=== PATIENT | female | born 1995 | race Caucasian/White ===

== ENCOUNTER 2020-07-23 09:48 | Outpatient (CLI) | payer BC ==
--- NOTE | 2020-07-23 11:23 | MMO ---
Bilateral MAMMO Bilat Diag DDI+BASSEM. CLINICAL HISTORY: Patient is 24 years old and is seen for diagnostic exam and palpable abnormality in the right breast. The patient has the following family history of breast cancer: mother, at age 58. The patient has no personal history of cancer. The patient has a history of right Cyst Aspiration in 2018 - benign - DONE IN DR MANNING'S OFFICE and right Cyst Aspiration in 2018. VIEWS: The views performed were: bilateral mediolateral oblique with tomosynthesis; bilateral craniocaudal with tomosynthesis; bilateral mediolateral with tomosynthesis; right craniocaudal spot compression magnification; right mediolateral spot compression magnification; right craniocaudal spot compression with tomosynthesis; and right mediolateral spot compression with tomosynthesis. FILMS COMPARED: The present examination has been compared to a prior imaging study performed at [facility] on 07/23/2020. This study has been interpreted with the assistance of computer-aided detection. MAMMOGRAM FINDINGS: The breasts are heterogeneously dense, which could obscure a lesion on mammography. Finding 1: There is an irregular mass measuring 20 millimeters with indistinct margins and associated fine pleomorphic calcifications seen in the anterior region of the right breast at 11 o'clock. Is palpable finding. Finding 2: There is a round mass measuring 20 millimeters with microlobulated margins seen in the right breast at 10 o'clock. solid on ultrasound Findings and recommendations were discussed with the patient prior to leaving the facility. All questions answered. In the left breast, there are no suspicious masses, calcifications or areas of architectural distortion. IMPRESSION: FINDING 1: MASS IN THE ANTERIOR REGION OF THE RIGHT BREAST AT 11 O'CLOCK IS SUSPICIOUS. AN ULTRASOUND-GUIDED BREAST BIOPSY IS RECOMMENDED. FINDING 2: MASS IN THE RIGHT BREAST AT 10 O'CLOCK IS SUSPICIOUS. AN ULTRASOUND-GUIDED BREAST BIOPSY IS RECOMMENDED. THE RESULTS OF THIS EXAM WERE SENT TO THE PATIENT. ACR BI-RADS Category 4 - Suspicious abnormality - biopsy should be considered MAMMOGRAPHY NOTE: 1. A negative mammogram report should not delay a biopsy if a dominant of clinically suspicious mass is present. 2. Approximately 10% to 15% of breast cancers are not detected by mammography. 3. Adenosis and dense breasts may obscure an underlying neoplasm. Reported by: BRAYAN DUTOTN MD Electonically Signed: [id number]
--- NOTE | 2020-07-23 11:39 | ULT ---
Exam: Right breast ultrasound Limited: HISTORY: Patient presents with a palpable finding at approximately 11:00. In the 11:00 position 4 cm from the nipple there is a very irregular heterogeneous mostly hypoechoic solid mass very poorly marginated contain microcalcifications which were worrisome on prior diagnostic mammogram. In addition to this palpable mass there is a second mass at 10:00 position 7 cm from the nipple which is round and somewhat more circumscribed measuring 1.8 cm in size but is solid. In addition to the 2 masses in the breast, the right axilla is evaluated with at least 2 lymph nodes demonstrated the largest one measures 1.7 x 2.1 cm in size and certainly is suspicious for lymphadenopathy. Biopsy of both right breast masses with ultrasound as well as the enlarged right axillary lymph node is recommended. BI-RADS Category 4 suspicious finding. Follow-up ultrasound-guided right breast biopsy is recommended . Findings were discussed with the patient as well as with Dr. Hamilton at the time of this study. The patient is scheduled for ultrasound-guided biopsy this afternoon at 1:00 PM.
--- NOTE | 2020-07-23 14:09 | MMO ---
FILMS COMPARED: The present examination has been compared to a prior imaging study performed at [facility] on 07/23/2020. MAMMOGRAM FINDINGS: The breast is heterogeneously dense, which could obscure a lesion on mammography. there are 2 biopsy clips in the right upper outer breast corresponding to masses. IMPRESSION: FINDING IN THE RIGHT BREAST IS CONFIRMED UTILIZING POST PROCEDURE MAMMOGRAM. Reported by: TIFFANI PRICE MD Electonically Signed: [id number]
--- NOTE | 2020-07-23 15:26 | ULT ---
EXAM: Ultrasound-guided biopsy of 2 separate right breast masses at the 10:00 and 11:[address] Ultrasound-guided biopsy marker clip placements at sites of biopsy right breast at the 10:00 and 11:0 0 positions Ultrasound-guided fine-needle aspiration of on enlarged right axillary lymph node PROVIDED CLINICAL HISTORY: Patient's mother with breast cancer diagnosed at the age of 58 years. Patient currently has 2 separat e right breast masses at 10:00 and 11:00 with enlarged right axillary lymph nodes. COMPARISON: Right breast ultrasound on 07/23/2020 TECHNIQUE: The procedure including the risks and complications were explained to the patient, and informed conse nt was obtained. The masses in the right breast at 10:00 and 11:00 positions were localized. The enlarged right axillary lymph node was also localized. These areas were meticulously prepped and drap ed in usual sterile fashion. The skin and subcutaneous tissues at the level of the masses in the right breast were infiltrated wit h buffered 1% lidocaine for local anesthesia. A small skin incision was made. Utilizing concurrent real-time ultrasound guidance, a total of 3 core needle biopsy specimens were obtained utilizing a 14 -gauge biopsy needle of the mass at the 10:00 position. A biopsy marker clip was then deployed at site of the mass at the 10:00 position. Skin and subcutaneous soft tissues adjacent to the mass at the 11:00 position right breast were infil trated with buffered 1% lidocaine for local anesthesia. Utilizing the same skin incision, a total of 4 core needle biopsy specimens were obtained utilizing the 14-gauge biopsy needle. Biopsy marker c lip was then deployed at site of biopsy adjacent to the right breast mass at 11:00 position. The largest lymph node in the right axilla was localized, and the skin and subcutaneous tissues were infiltrated with buffered 1% lidocaine for local anesthesia. Utilizing concurrent real-time ultrasound guidance and a Franseen needle, 2 separate fine-needle aspiration specimens of the enlarge d lymph node were performed. Hemostasis was achieved with direct pressure. Dry sterile dressings were placed at sites of biopsy an d fine-needle aspiration. The patient tolerated the procedure well and without immediate complication. Patient was transported to mammography to obtain post biopsy mammogram which demonstrated biopsy marker clips adjacent to masses in the right breast on mammographic evaluation which corresponds to ultrasound findings. IMPRESSION: 1. Technically successful ultrasound-guided biopsy of mass 10:00 position right breast, and successfu l placement of biopsy marker clip in this region. 2. Technically successful ultrasound-guided biopsy of mass 11:00 position right breast, and successfu l placement of biopsy marker clip in this region. 3. Technically successful ultrasound-guided fine-needle aspiration of enlarged right axillary lymph n ode. 4. Pathology results are pending.
== END 2020-07-23 09:49 | disposition home or self-care (01) ==
LOC: BICMAMMO 09:48
PROVIDERS: ATTEND Specialist
DX: N63.11 Unspecified lump in the right breast, upper outer quadrant (principal)
CPT/HCPCS: 19285; 19286; 38505; 77066; 88305; G0279

== ENCOUNTER 2020-08-02 06:39 | Outpatient (CLI) | payer BC ==
[2020-08-02 12:20] LABS: #Eosinphils 0.1 10x3/uL (0.0-0.5); #Monocytes 0.3 10x3/uL (0.0-1.1); #Neutrophils 3.7 10x3/uL (1.5-8.4); %Basophils 0.5 % (0.0-2.0); %Lymphocytes 36.2 % (18.0-47.0); %Monocytes 5.2 % (0.0-10.0); %Neutrophils 55.9 % (40.0-75.0); Hemoglobin 13.7 g/dL (12.0-16.0); Mean Corpuscular HGB CONC 32.1 G/DL (32.0-36.0); Mean Corpuscular Hemoglobin 27.5 PG (27.0-33.0); Mean Corpuscular Volume 85.6 fl (80.0-100.0); Mean Platelet Volume 10.9 fl (7.4-10.4); Platelet Count 319 10x3/uL (130-400); RBC Distribution Width 12.9 % (11.5-14.5); Red Blood Cell (RBC) Count 4.99 10x6/uL (3.90-5.20); White Blood Cell (WBC) Count 6.6 10x3/uL (4.5-11.0)
[2020-08-02 12:46] LABS: ALT (SGPT) 39 U/L (8-55); AST (SGOT) 21 U/L (5-34); Albumin 4.4 g/dL (3.5-5.0); Alkaline Phosphatase 69 U/L (40-110); Anion Gap 16 mmol/L (10-20); BUN (Urea Nitrogen) 13 mg/dL (7.0-18.7); Bilirubin, Total 0.4 mg/dL (0.2-1.2); Calc. Creatinine Clearance 0 mL/min (70-130); Calcium 9.5 mg/dL (7.8-10.44); Carbon Dioxide 26 mmol/L (22-29); Chloride 105 mmol/L (98-107); Globulin 3.3 g/dL (2.4-3.5); Glucose 99 mg/dL (70-105); Potassium 4.5 mmol/L (3.5-5.1); Protein, Total 7.7 g/dL (6.0-8.3); Sodium 142 mmol/L (136-145)
[2020-08-02 14:21] LABS: BHCG - Serum Negative (NEGATIVE); Pregs Control Background? CLEAR/WHITE (CLR/WHITE); Pregs Control Bar Appear? YES (CONTROL BAR)
[2020-08-02 19:02] LABS: SARS-CoV-2 MS2 Positive; SARS-CoV-2 N Gene Negative; SARS-CoV-2 S Gene Negative; SARS-CoV-2 by NAA Not Detected (NotDetected); SARS-CoV-2 orf1ab Negative
== END 2020-08-02 06:40 | disposition home or self-care (01) ==
LOC: LABBT 06:39
PROVIDERS: ATTEND Specialist
DX: Z01.812 Encounter for preprocedural laboratory examination (principal); C77.3 Secondary and unspecified malignant neoplasm of axilla and upper limb lymph nodes; C50.411 Malignant neoplasm of upper-outer quadrant of right female breast
CPT/HCPCS: 80053; 84703; 85025; 87635; U0003

== ENCOUNTER 2020-08-07 11:35 | Day surgery (SDC) | payer BC ==
[2020-08-06 11:09] VITALS: BMI 39.4
[~2020-08-07 11:35] MED LIST: Dexamethasone 20 MG/5 ML VIAL ONE; Esmolol 100 MG/10 ML VIAL ONE; Glycopyrrolate 0.2 MG/ML 5 ML SYRINGE ONE; Lidocaine 1% PF 5 ML VIAL ONE; Ondansetron PF 4 MG/2 ML Vial ONE; PROPOFOL 200 MG/20 ML VIAL ONE
[2020-08-07] MEDS ORDERED: Acetaminophen 500 MG TAB ONE (13:46)
[2020-08-07] MEDS ORDERED: Ketorolac Tromethamine 30 MG/ML VIAL ONE (13:46)
[2020-08-07] MEDS ORDERED: Midazolam HCl 2 mg/2 ml Vial ONE ×2 (14:42→15:17)
[2020-08-07] MEDS ORDERED: Lidocaine 2% PF 5 ML VIAL ONE (15:14)
[2020-08-07] MEDS ORDERED: Bupivacaine PF 0.5% 30 ML VIAL ONE (15:14)
[2020-08-07] MEDS ORDERED: Fentanyl 100 MCG/2 ML VIAL ONE (15:17)
[2020-08-07] MEDS ORDERED: Propofol 500 MG/50 ML VIAL ONE (15:17)
--- NOTE | 2020-08-07 16:46 | RAD ---
Portable frontal chest radiograph: 08/07/2020 COMPARISON: None HISTORY: Evaluate chest following placement of a Port-A-Cath FINDINGS: There is a left subclavian Port-A-Cath with distal tip overlying the cavoatrial junction. T here is no pneumothorax, pleural fluid, focal consolidation, or alveolar edema. Mild increased linear density noted in the lung bases, left greater than right, likely on the basis of volume loss. IMPRESSION: Left subclavian Port-A-Cath with no evidence for pneumothorax.
--- NOTE | 2020-08-07 19:51 | OP ---
DATE OF PROCEDURE: 08/07/2020 PREOPERATIVE DIAGNOSIS: Right breast cancer in need of antineoplastic chemotherapy access port. POSTOPERATIVE DIAGNOSIS: Right breast cancer in need of antineoplastic chemotherapy access port. PROCEDURE PERFORMED: Left subclavian vein MediPort, PowerPort. ANESTHESIA: Intravenous sedation, local 0.5% Marcaine 30 mL mixed with 1% Xylocaine with epinephrine 20 mL. Fluoroscopy used during the procedure. DESCRIPTION OF PROCEDURE: The patient was taken to the operating room, where under intravenous sedation, neck and chest prepared with ChloraPrep and draped in routine fashion. Local anesthetic was infiltrated in the skin and subcutaneous tissue about the operative site. Infraclavicular approach used to cannulate the left subclavian vein, obtaining good return of venous blood, J-wire threaded, trocar catheter removed. Skin site enlarged sharply creating a subcutaneous reservoir using cautery for hemostasis. Once the pocket was created, the dilator and Peel-Away sheath placed with J-wire in the subclavian vein and dilator and J-wire removed. Catheter placed with Peel-Away sheath. Peel-Away sheath was removed. Fluoroscopy used to place the tip in optimal position in superior vena cava, catheter tailored to length connected to the MediPort which was secured to the subcutaneous tissues with 3-0 Prolene x2 and the subcutaneous tissue was approximated with 3-0 Monocryl, skin with subdermal 4-0 Monocryl and final fluoroscopic images revealed good catheter and port placement. The port was accessed with a Lee needle, aspirated blood, and flushed with heparinized saline solution and sterile dressing applied. The patient tolerated the procedure well. Job ID: [id number]
== END 2020-08-07 17:35 | disposition home or self-care (01) ==
LOC: SDC 11:35
PROVIDERS: ATTEND Specialist
PROC: 02HV33Z Insertion of Infusion Device into Superior Vena Cava, Percutaneous Approach (ICD-10-PCS; principal; 2020-08-07)
DX: C50.411 Malignant neoplasm of upper-outer quadrant of right female breast (principal); C77.3 Secondary and unspecified malignant neoplasm of axilla and upper limb lymph nodes; Z80.3 Family history of malignant neoplasm of breast
CPT/HCPCS: 71045; C1788; J0690; J1100; J1642; J1885; J2001; J2250; J2405; J2704; J3010; S0020

== ENCOUNTER 2020-08-17 15:40 | Emergency (ER) | payer BC ==
[2020-08-17] MEDS ORDERED: Ondansetron PF 4 MG/2 ML Vial ONE (16:08)
[2020-08-17] MEDS ORDERED: Morphine 4 MG/ML VIAL ONE (16:17)
[2020-08-17 16:59] LABS: Hemoglobin 15.7 g/dL (12.0-16.0); Mean Corpuscular HGB CONC 32.5 g/dL (32.0-36.0); Mean Corpuscular Hemoglobin 27.8 pg (27.0-31.0); Mean Corpuscular Volume 85.7 fL (78.0-98.0); Mean Platelet Volume 8.2 fL (7.4-10.4); Platelet Count 258 thou/uL (130-400); RBC Distribution Width 12.5 % (11.5-14.5); Red Blood Cell (RBC) Count 5.66 mill/uL (4.20-5.40); White Blood Cell (WBC) Count 57.5 thou/uL (4.8-10.8)
[2020-08-17 17:14] LABS: ALT (SGPT) 71 U/L (8-55); AST (SGOT) 38 U/L (5-34); Albumin 4.4 g/dL (3.5-5.0); Alkaline Phosphatase 250 U/L (40-110); Anion Gap 13 mmol/L (10-20); BUN (Urea Nitrogen) 12 mg/dL (7.0-18.7); Bilirubin, Total 0.4 mg/dL (0.2-1.2); Calc. Creatinine Clearance 0 mL/min (70-130); Calcium 9.3 mg/dL (7.8-10.44); Carbon Dioxide 31 mmol/L (22-29); Chloride 96 mmol/L (98-107); Globulin 3.7 g/dL (2.4-3.5); Glucose 87 mg/dL (70-105); Lipase 32 U/L (8-78); Protein, Total 8.1 g/dL (6.0-8.3); Sodium 136 mmol/L (136-145)
[2020-08-17 17:21] LABS: Band 48 % (5-11); Lymphocytes 4 % (21-51); MDiff Complete? YES; Metamyelocyte 5 % (0-0); Monocytes 10 % (0-10); Myelocyte 5 % (0-0); Neutrophil 25 % (42-75); Nucleated RBC 1 % (0); Platelet Morphology Comment Appears Adequate; Polychromasia MODERATE = 3-4 cells (100X) (0-2/hpf); Reactive Lymphocytes 3 % (0-10); Reflex for Review?? YES
[2020-08-17] MEDS ORDERED: Piperacillin/Tazobactam 3.375 GM VIAL ONE ×2 (18:11→18:15)
[2020-08-17] MEDS ORDERED: Promethazine HCl 25 MG/ML VIAL ONE (18:53)
[2020-08-17 19:52] LABS: Pregnancy Test - Urine (BHCG) Negative (Negative); Pregu Control Background? CLEAR/WHITE (CLR/WHITE); Pregu Control Bar Appear? YES (CONTROL BAR)
[2020-08-17 19:53] LABS: Bacteria/HPF None Seen HPF (None Seen); Bilirubin Negative (Negative); Blood, Urine 2+ (Negative); Clarity Clear (Clear); Glucose, Urine (Dipstick) Normal (Negative); Ketone, Urine Negative (Negative); Leukocyte Negative Leu/uL (Negative); Nitrite Negative (Negative); Protein, Urine (Dipstick) Negative (Neg-Trace); RBC/HPF 0-3 HPF (0-3); Squamous Epithelial 0-3 HPF (0-3); Urobilinogen Normal mg/dL (Less than 2); pH, Urine 5.5 (5.0-9.0)
--- NOTE | 2020-08-17 20:16 | CT ---
CT ABDOMEN AND PELVIS WITH IV CONTRAST 08/17/2020 CLINICAL INFORMATION: Abdominal pain with nausea and vomiting. History of breast cancer. COMPARISON: 08/03/2020 Technique: Multiple contiguous axial CT images are obtained through the abdomen and pelvis with IV contrast. Cor onal reformatted images are provided. FINDINGS: Lower Chest: Very tiny subpleural nodular density previously measured 4 mm is again seen but less per ceptible on today's examination which could be related to slice selection. No additional pulmonary nodule is seen at either lung base, and there is no pleural effusion. Vessels: Abdominal aorta is normal in caliber. Abdomen: Portal vein:Patent Gallbladder: Surgically absent. Liver: Hepatic steatosis is again seen. No focal hepatic lesion is identified. Spleen: within normal limits. Pancreas: within normal limits. Adrenals: within normal limits. Kidneys: within normal limits. Bowel: Normal caliber. Appendix: The appendix is visualized and normal in caliber. Peritoneum: No ascites or free air; no fluid collection. Mesentery and Retroperitoneum: No enlarged lymph nodes are seen by CT size criteria. Abdominal Wall: Very tiny fat-containing umbilical hernia. Pelvis: Reproductive Organs: No pelvic masses. Gas is seen within the vaginal vault likely due to female hygi evelyn products. Bladder: Incompletely distended but has a normal appearance Bones: No suspicious lytic or sclerotic osseous lesions. IMPRESSION: 1P No acute findings are seen in the abdomen or pelvis. CT abdomen and pelvis are stable compared to prior exam. 2. Hepatic steatosis. 3. Postcholecystectomy changes. 4. Very tiny subpleural nodular density left lung base which is less perceptible compared to prior [facility].
[2020-08-17] MEDS ORDERED: Vancomycin 1 GM/200 ML BAG ONE (20:38)
--- NOTE | 2020-08-17 21:10 | PDOC.FPRHP ---
- History of Present Illness History of Present Illness: Patient is a 24 yo Patient had first chemo treatment last . She has been unable to eat since Thursday. She has also been experiencing N/V during this time. She is vomiting at least twice a day and often more. Denies blood in the vomit. She is able to tolerate some water and small bites of pudding or bananas, but that eventually comes up. On Thursday, she started having nosebleeds. She has had 8 since then. One of the nosebleeds lasted 20 minutes, but the others have lasted less than 10 minutes and relieved with compression. Denies fever, but endorses chills. Denies IVERSON, cough, SOB, CP. - Allergies/Adverse Reactions Allergies Allergy/AdvReac Type Severity Reaction Status Date / Time No Known Allergies Allergy Verified 08/06/20 11:07 - Home Medications Medication Instructions Recorded Confirmed Type No Known 08/06/20 08/06/20 History - History PMHx: PSHx: FHx: Social: - Vital signs BP: [] HR: [] RR: [] Tmax: [] Pox: []% on [] Wt: [] FMR H&P: Results - Labs Result Diagrams: 08/17/20 16:34 08/17/20 16:34 Lab results: WBC 57.5 thou/uL (4.8-10.8) H* 08/17/20 16:34 Hgb 15.7 g/dL (12.0-16.0) 08/17/20 16:34 Hct 48.5 % (36.0-47.0) H 08/17/20 16:34 MCV 85.7 fL (78.0-98.0) 08/17/20 16:34 Plt Count 258 thou/uL (130-400) 08/17/20 16:34 Band Neuts % (Manual) 48 % (5-11) H 08/17/20 16:34 Sodium 136 mmol/L (136-145) 08/17/20 16:34 Potassium 4.0 mmol/L (3.5-5.1) 08/17/20 16:34 Chloride 96 mmol/L (98-107) L 08/17/20 16:34 Carbon Dioxide 31 mmol/L (22-29) H 08/17/20 16:34 BUN 12 mg/dL (7.0-18.7) 08/17/20 16:34 Creatinine 1.11 mg/dL (0.6-1.1) H 08/17/20 16:34 Glucose 87 mg/dL (70-105) 08/17/20 16:34 Lactic Acid 1.8 mmol/L (0.5-2.2) 08/17/20 18:36 Calcium 9.3 mg/dL (7.8-10.44) 08/17/20 16:34 Total Bilirubin 0.4 mg/dL (0.2-1.2) 08/17/20 16:34 AST 38 U/L (5-34) H 08/17/20 16:34 ALT 71 U/L (8-55) H 08/17/20 16:34 Alkaline Phosphatase 250 U/L (40-110) H 08/17/20 16:34 Serum Total Protein 8.1 g/dL (6.0-8.3) 08/17/20 16:34 Albumin 4.4 g/dL (3.5-5.0) 08/17/20 16:34 Lipase 32 U/L (8-78) 08/17/20 16:34 Urine Ketones Negative mg/dL (Negative) 08/17/20 18:40 Urine Blood 2+ (Negative) A 08/17/20 18:40 Urine Nitrite Negative (Negative) 08/17/20 18:40 Ur Leukocyte Esterase Negative Reena/uL (Negative) 08/17/20 18:40 Urine RBC 0-3 HPF (0-3) 08/17/20 18:40 Urine WBC 4-6 HPF (0-3) A 08/17/20 18:40 Ur Squamous Epith Cells 0-3 HPF (0-3) 08/17/20 18:40 Urine Bacteria None Seen HPF (None Seen) 08/17/20 18:40 FMR H&P: Upper Level - Plan Date/Time: 08/17/202105 I, [], have evaluated this patient and agree with findings/plan as outlined by purchasing internship resident. Pertinent changes/additions are listed here.
[2020-08-17] MEDS ORDERED: Ciprofloxacin 500 MG TAB ONE (23:23)
== END 2020-08-18 03:03 | disposition short-term general hospital (02) ==
LOC: ERS 15:40
DX: E86.0 Dehydration (principal); A41.9 Sepsis, unspecified organism; E86.1 Hypovolemia
CPT/HCPCS: 36415; 74177; 80053; 81003; 81015; 81025; 83605; 83690; 85025; 85060; 87040; 87086; 96365; 96366; 96367; 96375; J2270; J2405; J2543; J2550; J3370

== ENCOUNTER 2020-09-04 13:40 | Inpatient (IN) | payer BC ==
[~2020-09-04 13:40] MED LIST changes: -Dexamethasone 20 MG/5 ML VIAL ONE; -Esmolol 100 MG/10 ML VIAL ONE; -Glycopyrrolate 0.2 MG/ML 5 ML SYRINGE ONE; +Iopamidol-370 76% 500 ML 1 ML ONE; -Lidocaine 1% PF 5 ML VIAL ONE; -Ondansetron PF 4 MG/2 ML Vial ONE; -PROPOFOL 200 MG/20 ML VIAL ONE
[2020-09-04] MEDS ORDERED: Ondansetron PF 4 MG/2 ML Vial ONE ×2 (14:23→16:56)
[2020-09-04] MEDS ORDERED: Cefepime 2 GM VIAL ONE (14:23)
[2020-09-04] MEDS ORDERED: Morphine 4 MG/ML VIAL ONE ×2 (14:23→16:56)
--- NOTE | 2020-09-04 14:25 | RAD ---
EXAM: CHEST ONE VIEW HISTORY: Covid positive. Patient diagnosed with colitis. Patient claims of abdominal pain and nausea and vomit ing. COMPARISON: 08/07/2020 FINDINGS: Left-sided Mediport catheter remains place. Cardiac silhouette is within normal limits. There has bee n interval interval development of increased interstitial and alveolar opacities seen within the majority the right lung as well as in the region of the left lung base. Findings may be related to an atypical infectious process and possibly secondary to viral pneumonitis such as Covid 19. No other interval change. IMPRESSION: Findings suspicious for Covid pneumonia.
[2020-09-04 14:35] LABS: Hemoglobin 12.2 g/dL (12.0-16.0); Mean Corpuscular HGB CONC 31.7 g/dL (32.0-36.0); Mean Corpuscular Hemoglobin 26.8 pg (27.0-31.0); Mean Corpuscular Volume 84.5 fL (78.0-98.0); Mean Platelet Volume 9.2 fL (7.4-10.4); Platelet Count 196 thou/uL (130-400); RBC Distribution Width 13.9 % (11.5-14.5); Red Blood Cell (RBC) Count 4.56 mill/uL (4.20-5.40); White Blood Cell (WBC) Count 23.7 thou/uL (4.8-10.8)
[2020-09-04 14:48] LABS: ALT (SGPT) 32 U/L (8-55); AST (SGOT) 40 U/L (5-34); Albumin 2.7 g/dL (3.5-5.0); Alkaline Phosphatase 64 U/L (40-110); Anion Gap 14 mmol/L (10-20); BUN (Urea Nitrogen) 17 mg/dL (7.0-18.7); Band 48 % (5-11); Bilirubin, Total 0.6 mg/dL (0.2-1.2); CK (CPK) 65 U/L (29-168); Calc. Creatinine Clearance 0 mL/min (70-130); Calcium 7.2 mg/dL (7.8-10.44); Carbon Dioxide 26 mmol/L (22-29); Chloride 98 mmol/L (98-107); Globulin 2.9 g/dL (2.4-3.5); Glucose 104 mg/dL (70-105); Lipase 12 U/L (8-78); Lymphocytes 3 % (21-51); MDiff Complete? YES; Monocytes 2 % (0-10); Neutrophil 46 % (42-75); Platelet Morphology Comment Appears Adequate; Potassium 3.8 mmol/L (3.5-5.1); Protein, Total 5.6 g/dL (6.0-8.3); RBC Morphology Normal; Reactive Lymphocytes 1 % (0-10); Sodium 134 mmol/L (136-145)
[2020-09-04 14:56] LABS: BHCG - Serum Negative (NEGATIVE); Pregs Control Background? CLEAR/WHITE (CLR/WHITE); Pregs Control Bar Appear? YES (CONTROL BAR)
--- NOTE | 2020-09-04 16:34 | CT ---
EXAM: CT Abdomen Pelvis W Con PROVIDED CLINICAL HISTORY: Abdominal pain COMPARISON: 08/17/2020 FINDINGS: There are multifocal patchy groundglass opacities with associated interstitial thickening involving b oth lung bases. There is partially visualized right pleural fluid. There is diffuse fatty infiltration of the liver. The spleen, pancreas, kidneys and adrenal glands ap pear unremarkable. Changes of prior cholecystectomy are seen. There is conspicuous diffuse colonic and rectal wall thickening with associated mucosal enhancement a nd pericolonic noncircumscribed fluid density. There is no evidence for free intraperitoneal air. There is mild free intraperitoneal fluid. The appendix does not appear dilated. The regional major vascular structures appear unremarkable. Contrast material seen within the urinary bladder, presumably on the basis of recent IV contrast administration. The osseous structures demonstrate no concerning lytic or blastic lesions. IMPRESSION: 1. Severe pancolitis. 2. Small right pleural fluid and mild free intraperitoneal fluid. 3. Pulmonary parenchymal findings typical for Covid pneumonia.
[2020-09-04] MEDS ORDERED: metroNIDAZOLE 500 MG/100 ML BAG ONE (16:57)
[2020-09-04 17:22] LABS: Lactic Acid 2.5 mmol/L (0.5-2.2)
[2020-09-04] MEDS ORDERED: Acetaminophen 650 MG Suppository PR PRN (18:09)
[2020-09-04] MEDS ORDERED: Albuterol Sulfate 2.5 mg/3 ml Neb NEB PRN (18:15)
[2020-09-04] MEDS ORDERED: Dexamethasone 4 mg/ml Vial SLOW IVP SCH (18:15)
[2020-09-04] MEDS ORDERED: Ondansetron PF 4 MG/2 ML Vial IVP PRN (18:17)
--- NOTE | 2020-09-04 18:47 | PDOC.HHP ---
Hospitalist HPI - History of Present Illness History of Present Illness: ADMISSION DATE: 09/04/2020 TIME OF ASSESSMENT: 1700 CHIEF COMPLAINT: Multiple complaints HPI: This is a 24-year-old woman who presents emergency department today with complaints of shortness of breath who has had persistent issues with nausea, vo miting and diarrhea for the last 4 to 6 weeks. She has had frequent visits to the emergency department at [facility] and states she has been sent home. Her last visit to the ER was yesterday evening when she underwent CT imaging that demonstrated she had colitis. She has been taking Zofran at home without any improvement in nausea vomiting. Reports having tried as needed Phenergan but had a bad reaction to it. States that she felt like she was going to pass out. She has gotten to the point where she has only been dry heaving and typically dry heaving does not settle until she has a bowel movement. All her stools have been watery and today alone she has had 8 loose stools. Reports having blood in the stools on one occasion a few days ago. States she has not held down any solid food for several weeks and does not recall her last meal. She has a known history of breast cancer for which she sees Dr. Beckman. Her last chemotherapy treatment was on August 09, 2020 and she has been receiving treatment with carboplatin, docetaxel and Herceptin. She was due for another treatment on August 29 however she was tested for Covid on 08/26/2020 after developing a fever which came back positive. For that reason her treatments were postponed. She reports feeling short of breath with exertion and states that has worsened in the last 2 to 3 days. She complains of a cough that is dry and has not noted any hemoptysis. Denies having any chest pain. She complains of generalized malaise and weakness and states she spent most of her time in bed for the last several weeks due to her general fatigue as well as with shortness of breath on minimal exertion. ED COURSE: When initially seen in the emergency department the patient was on 15 L via nonrebreather and satting at 98% in triage. He has been tachycardic in the 130s since arrival. EKG was done showing sinus tachycardia with no ST changes or T wave abnormalities. She had a heart rate of 133. In the ER she had a chest x-ray done that showed findings suspicious for Covid pneumonia. CT of the abdomen and pelvis was done as well demonstrating severe pancolitis. She was noted to have a small right pleural fluid and mild free intraperitoneal fluid. Pulmonary parenchymal findings typical for Covid pneumonia. She was started on IV antibiotics with cefepime and Flagyl. She has been given 2 L of normal saline. For her severe abdominal pain she has gotten morphine 4 mg x 2. For her nausea she has gotten Zofran 4 mg x 2. PAST MEDICAL HISTORY: 1. 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 History of depression PAST SURGICAL HISTORY: 1. Cholecystectomy 2. Laparoscopic surgery SOCIAL HISTORY: Patient lives at home with her and child. Denies any tobacco use alcohol consumption or drug use. She is fully independent at baseline. FAMILY HISTORY: Family history of breast cancer ALLERGIES: Haldol and vancomycin CURRENT MEDICATIONS: 1. Zofran 8 mg p.o. every 8 hours as needed for nausea vomiting 2. Levaquin 500 mg p.o. daily 3. Carboplatin 4. Docetaxel 5. Neulasta 6. Trastuzumab 7. Perjeta - Exam General Appearance: NAD, ill appearing (appears generally unwell and fatigued) General - other findings: VS: Temp 99.5, HR 133, RR 24, BP 119/83, O2 sat 99% on 3 L by nasal cannula Eye: PERRL, anicteric sclera ENT: normocephalic atraumatic, dry oral mucosa Neck: supple, no lymphadenopathy Heart: RRR, normal peripheral pulses Respiratory: CTAB, no wheezes, no rales, no ronchi, normal chest expansion Gastrointestinal: soft (mild discomfort in the mid abdomen with palpation), non- distended, normal bowel sounds, no guarding, no rigidity Extremities: no edema Skin: normal turgor, no lesions, no rashes Neurological: cranial nerve grossly intact, normal sensation to touch, no weakness Musculoskeletal: normal tone, normal strength, no muscle wasting Psychiatric: normal affect, normal behavior, A&O x 3, oriented to person Hospitalist Results - Labs Result Diagrams: 09/04/20 14:09 09/04/20 14:09 Lab results: WBC 23.7 thou/uL (4.8-10.8) H 09/04/20 14:09 Hgb 12.2 g/dL (12.0-16.0) 09/04/20 14:09 Hct 38.6 % (36.0-47.0) 09/04/20 14:09 MCV 84.5 fL (78.0-98.0) 09/04/20 14:09 Plt Count 196 thou/uL (130-400) 09/04/20 14:09 Band Neuts % (Manual) 48 % (5-11) H 09/04/20 14:09 Sodium 134 mmol/L (136-145) L 09/04/20 14:09 Potassium 3.8 mmol/L (3.5-5.1) 09/04/20 14:09 Chloride 98 mmol/L (98-107) 09/04/20 14:09 Carbon Dioxide 26 mmol/L (22-29) 09/04/20 14:09 BUN 17 mg/dL (7.0-18.7) 09/04/20 14:09 Creatinine 0.93 mg/dL (0.6-1.1) 09/04/20 14:09 Glucose 104 mg/dL (70-105) 09/04/20 14:09 Lactic Acid 2.5 mmol/L (0.5-2.2) H 09/04/20 16:53 Calcium 7.2 mg/dL (7.8-10.44) L 09/04/20 14:09 Total Bilirubin 0.6 mg/dL (0.2-1.2) 09/04/20 14:09 AST 40 U/L (5-34) H 09/04/20 14:09 ALT 32 U/L (8-55) 09/04/20 14:09 Alkaline Phosphatase 64 U/L (40-110) 09/04/20 14:09 Creatine Kinase 65 U/L (29-168) 09/04/20 14:09 Serum Total Protein 5.6 g/dL (6.0-8.3) L 09/04/20 14:09 Albumin 2.7 g/dL (3.5-5.0) L 09/04/20 14:09 Lipase 12 U/L (8-78) 09/04/20 14:09 - Radiology Interpretation CT scan - abdomen Status: report reviewed by sc Hospitalist H&P A/P - Problem (1) Pneumonia due to COVID-19 virus Code(s): U07.1 - COVID-19; J12.82 - PNEUMONIA DUE TO CORONAVIRUS DISEASE 2019 Status: Acute (2) Pancolitis Code(s): K51.00 - ULCERATIVE (CHRONIC) PANCOLITIS WITHOUT COMPLICATIONS Status: Acute (3) Tachycardia Code(s): R00.0 - TACHYCARDIA, UNSPECIFIED Status: Acute (4) Intractable nausea and vomiting Code(s): R11.2 - NAUSEA WITH VOMITING, UNSPECIFIED Status: Acute (5) Diarrhea Code(s): R19.7 - DIARRHEA, UNSPECIFIED Status: Acute (6) Breast cancer Status: Chronic - Plan Plan: Cardiac and O2 sat monitoring Will check d-dimer in light of COVID, malignancy and sedentary for weeks to rule out PE Continue IV hydration Consult GI Continue IV antibiotics Zofran PRN for n/v. Clear liquid diet, advance as tolerated Albuterol, dex, vitamin c and zinc Pharmacy to screen for Remdesivir Stool studies If negative for c. diff, will start Imodium GI prophylaxis with Famotidine CODE STATS FULL Continue isolation status Case discussed with Dr. Meléndez who agrees with plan as above
[2020-09-04] MEDS ORDERED: Albuterol 200 PUFF (6.7GM INHALER) INH PRN (18:55)
[2020-09-04 21:09] VITALS: BMI 36.8
[2020-09-04] MEDS: Sodium Chloride 0.9% 1,000 ML IV SCH (21:28)
[2020-09-04] MEDS: metroNIDAZOLE 500 MG in Premix Bag 1 BAG IVPB SCH (23:22)
[2020-09-04] MEDS: Famotidine 20 MG TAB PO SCH (23:22)
[2020-09-04] MEDS: Ondansetron ODT 4 MG TAB PO PRN (23:22)
[2020-09-05] MEDS: HYDROcodone/Acetaminophen 7.5/325 mg Tablet PO PRN ×4 (00:52→21:21)
[2020-09-05] MEDS ORDERED: Cefepime 2 GM in Sodium Chloride 0.9% 100 ML IVPB SCH (04:00)
[2020-09-05 05:23] LABS: ALT (SGPT) 27 U/L (8-55); AST (SGOT) 38 U/L (5-34); Albumin 2.5 g/dL (3.5-5.0); Alkaline Phosphatase 59 U/L (40-110); Anion Gap 12 mmol/L (10-20); BUN (Urea Nitrogen) 14 mg/dL (7.0-18.7); Bilirubin, Total 0.5 mg/dL (0.2-1.2); Calc. Creatinine Clearance 170 mL/min (70-130); Carbon Dioxide 23 mmol/L (22-29); Chloride 103 mmol/L (98-107); Globulin 2.8 g/dL (2.4-3.5); Glucose 135 mg/dL (70-105); Potassium 3.8 mmol/L (3.5-5.1); Protein, Total 5.3 g/dL (6.0-8.3); Sodium 134 mmol/L (136-145)
[2020-09-05] MEDS: Sodium Chloride 0.9% 1,000 ML IV SCH ×2 (05:32→13:18)
[2020-09-05] MEDS: metroNIDAZOLE 500 MG in Premix Bag 1 BAG IVPB SCH ×4 (05:32→23:33)
[2020-09-05 06:44] LABS: Hemoglobin 10.4 g/dL (12.0-16.0); Mean Corpuscular HGB CONC 31.9 g/dL (32.0-36.0); Mean Corpuscular Hemoglobin 26.9 pg (27.0-31.0); Mean Corpuscular Volume 84.3 fL (78.0-98.0); Mean Platelet Volume 9.1 fL (7.4-10.4); Platelet Count 202 thou/uL (130-400); RBC Distribution Width 13.8 % (11.5-14.5); Red Blood Cell (RBC) Count 3.86 mill/uL (4.20-5.40); White Blood Cell (WBC) Count 18.9 thou/uL (4.8-10.8)
[2020-09-05 06:47] LABS: Band 19 % (5-11); Lymphocytes 4 % (21-51); MDiff Complete? YES; Neutrophil 77 % (42-75)
[2020-09-05] MEDS: Zinc Sulfate 220 MG CAP PO SCH (08:17)
[2020-09-05] MEDS: Ascorbic Acid 500 mg Chewable Tablet PO SCH (08:17)
[2020-09-05] MEDS: Famotidine 20 MG TAB PO SCH ×2 (08:17→21:20)
[2020-09-05] MEDS ORDERED: REMDESIVIR (EUA) 200 MG in Sodium Chloride 0.9% 250 ML 210 ML IV SCH (09:00)
[2020-09-05] MEDS ORDERED: Prevnar 13-Val Conj/PF 0.5 ML SYRINGE IM ONE (09:00)
[2020-09-05] MEDS ORDERED: Vancomycin HCl 25 MG/ML Oral PO SCH (09:00)
[2020-09-05] MEDS ORDERED: Dexamethasone 4 mg/ml Vial SLOW IVP SCH (09:00)
[2020-09-05 09:27] LABS: SARS-CoV-2 MS2 Positive; SARS-CoV-2 N Gene Positive; SARS-CoV-2 S Gene Positive; SARS-CoV-2 by NAA DETECTED (NotDetected); SARS-CoV-2 orf1ab Positive
[2020-09-05] MEDS ORDERED: Fidaxomicin 200 MG TAB PO SCH (10:15)
[2020-09-05] MEDS: Enoxaparin Sodium 40 MG/0.4 ML SYRINGE SC SCH ×2 (10:39→21:22)
[2020-09-05] MEDS: Ondansetron ODT 4 MG TAB PO PRN ×2 (11:59→21:34)
--- NOTE | 2020-09-05 12:21 | CON ---
DATE OF CONSULTATION: REASON FOR CONSULT: "Pancolitis." HISTORY OF PRESENT ILLNESS: Ms. Gudino is a 24-year-old female who was diagnosed with breast cancer few months ago. She is in the middle of therapy when on the 26 of August, she was diagnosed with COVID and chemotherapy was held. She notes she has had diarrhea throughout her course of chemo, but it got much worse in the past several days. Apparently, she was given some antibiotics empirically on the time she developed respiratory symptoms before she was diagnosed with COVID. She apparently had several visits to an outside ER and was sent home and presented again yesterday to the emergency room here where she had a CAT scan showing colitis. The C difficile has subsequently came back positive. She is having bowel movements about every hour, watery and loose and has been having some dry heaves. She has had no blood in her stool. She denies any fever or chills. She has not been able to hold off on a solid food for several weeks. PAST MEDICAL HISTORY: 1. Breast cancer, recent diagnosis, last chemo 08/09/2020, carboplatin, docetaxel, Herceptin, missed treatment on August 29. 2. COVID positive 08/26. 3. depression. PAST SURGICAL HISTORY: Laparoscopic cholecystectomy, laparoscopic pelvic surgery. SOCIAL HISTORY: The patient lives at home with , Sidney. She does not smoke, drink, or use drugs. FAMILY HISTORY: Mother had breast cancer at young age. Father's mother had colon cancer at young age. Father of heart disease at 59. ALLERGIES: HALDOL, VANCOMYCIN. VANCOMYCIN SOUNDS LIKE RED MAN SYNDROME. MEDICATIONS: At home: 1. Levaquin. 2. Zofran. Medications here: 1. Lovenox. 2. Pepcid. 3. Hydrocodone p.r.n. 4. Metronidazole 500 IV q.6 hours. 5. Zofran p.r.n. 6. Remdesivir. 7. Vancomycin 125 p.o. q.6 hours. 8. Zinc sulfate. 9. Vitamin C. REVIEW OF SYSTEMS: Patient denies any shortness of breath at this time. Has had a dry cough, some myalgias. No fever. No dysuria, frequency, or urgency. No vomiting now. No abdominal pain now. PHYSICAL EXAMINATION: VITAL SIGNS: Pulse is 110 last night, now 99; blood pressure 129/61; O2 saturation 92% on 3 L nasal cannula. Temperature is 97.6. GENERAL: She is a bit overweight. She is in no distress. She is very pleasant. HEENT: Oropharynx is slightly dry. Conjunctivae and sclerae clear. There is no jaundice. LUNGS: Clear. HEART: Regular rate and rhythm without clicks or murmurs. ABDOMEN: Soft and nontender. There is no rebound. There is no guarding. EXTREMITIES: No clubbing, cyanosis, or edema. LABORATORY STUDIES: White count 23,000 yesterday, 18.9 today; hemoglobin 10.4, down from 12.2; platelet count 202. D-dimer 7.9. Sodium 134, potassium 3.8, BUN and creatinine 14 and 0.7, calcium 7. Bilirubin 0.5, AST 38, ALT 27, protein 5.3, albumin 2.5. CT scan pancolitis with no signs of toxic megacolon. Chest x-ray consistent with COVID pneumonia. ASSESSMENT: 1. COVID infection. There is no contraindication to anticoagulation. We will defer treatment of COVID to primary internal medicine service. 2. Clostridium difficile colitis, severe. 3. 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 This can happen with oral. She is fairly miserable right now. We need to avoid this. We will stop the oral vancomycin and place her on Dificid. 4. Agree with IV Flagyl. 5. IV hydration. 6. Probiotics. 7. Advance diet as tolerated. 8. We will follow along with you. Job ID: [id number]
--- NOTE | 2020-09-05 12:48 | PQF ---
CLINICAL DOCUMENTATION CLARIFICATION FORM: Dear Dr. Antony Date / Time: 09/05/20 12:30 Please exercise your independent, professional judgment in responding to the clarification form. Clinical indicators are provided on the bottom of this form for your review Please check appropriate box(es) to clarify if the following diagnosis has been ruled in our ruled out: Severe Sepsis [ ] Ruled in diagnosis [ ] Continue to treat [ ] Resolved [ ] Ruled out diagnosis [ ] Improving [ ] Cannot rule out diagnosis [x ] Other diagnosis sepsis [ ] Unable to determine In addition, please specify: Present on Admission (POA): [ x ] Yes [ ] No [ ] Unable to determine Physician Signature: Date/Time: For continuity of documentation, please document condition throughout progress notes and discharge summary. Thank You. To be completed by CDI/Coding staff for physician review: Clinical Indicators - Signs / Symptoms / Labs Results and Location in Medical Record Tachycardia 133-140/min V/S on 09/04/20 Respirations 24/min V/S on 09/04/20 Temperature 102.3F V/S on 09/04/20 WBC 23.7 Lab Result on 09/04/20 Lactic acid 2.5 Lab Result on 09/04/20 Risk Factors Severe Sepsis, Covid 19, Pneumonia, Pancolitis ED Doctor Note on 09/04/20 Covid 19 Pneumonia, Pancolitis, Tachycardia H&P on 09/04/[address] Sy on 09/05/20 Treatments IV Flagyl & Cefepime MAR on 09/04/20 IV Remdesivir OCT on 09/04/20 IVFs OCT on 09/04/20 CDS/Vp Legal Affairs Signature: Brenda Sanchez Phone #: [phone] Date/Time: 09/05/20 12:46 This is a permanent part of the Medical Record [facility]
[2020-09-05] MEDS ORDERED: Iopamidol-370 76% 500 ML 1 ML ONE (13:06)
--- NOTE | 2020-09-05 14:00 | PDOC.HOSPP ---
- Subjective Encounter Date: 09/05/20 Encounter Time: 09:45 Subjective: pt up in bed no complains - Objective Vital Signs & Weight: Vital Signs (12 hours) Temp Pulse Resp BP BP Pulse Ox 09/05/20 11:00 97.6 F 99 18 121/67 92 L 09/05/20 08:00 92 L 09/05/20 07:00 98.2 F 91 18 109/70 98 09/05/20 03:15 98.1 F 110 H 16 112/61 97 Weight Admit Weight 215 lb Weight 215 lb I&O: 09/04/20 09/05/20 09/06/20 06:59 06:59 06:59 Intake Total 1870 Balance 1870 Result Diagrams: 09/05/20 04:34 09/05/20 04:34 Hospitalist ROS - Review of Systems Respiratory: denies: cough, dry, shortness of breath, hemoptysis, SOB with excertion, pleuritic pain, sputum, wheezing, other Cardiovascular: denies: chest pain, palpitations, orthopnea, paroxysmal noc. dyspnea, edema, light headedness, other Gastrointestinal: reports: nausea. denies: vomiting, abdominal pain, diarrhea, constipation, melena, hematochezia, other - Medication Medications: Active Medications Generic Name Dose Route Start Last Admin Trade Name Freq PRN Reason Stop Dose Admin Hydrocodone Bitart/Acetaminophen 1 tab 09/05/20 00:37 09/05/20 13:17 Hydrocodone/Acetaminophen 7.5/325 Mg Tablet PO 1 tab Q4H PRN Administration Moderate Pain (4-6) Ascorbic Acid 1,000 mg 09/05/20 09:00 09/05/20 08:17 Ascorbic Acid 500 Mg Chewable Tablet PO 1,000 mg DAILY CORBIN Administration Enoxaparin Sodium 40 mg 09/05/20 09:00 09/05/20 10:39 Enoxaparin Sodium 40 Mg/0.4 Ml Syringe SC 40 mg 0900,2100 CORBIN Administration Famotidine 20 mg 09/04/20 21:00 09/05/20 08:17 Famotidine 20 Mg Tab PO 20 mg BID CORBIN Administration Metronidazole 500 mg/ Device 100 mls @ 100 mls/hr 09/04/20 23:59 09/05/20 11:59 IVPB 100 mls Q6HR CORBIN Administration Sodium Chloride 1,000 mls @ 100 mls/hr 09/04/20 18:30 09/05/20 13:18 Normal Saline 0.9% IV Not Given .Q10H CORBIN Ondansetron HCl 4 mg 09/04/20 18:17 09/05/20 11:59 Ondansetron Odt 4 Mg Tab PO 4 mg Q6H PRN Administration Nausea/Vomiting Zinc Sulfate 220 mg 09/05/20 09:00 09/05/20 08:17 Zinc Sulfate 220 Mg Cap PO 220 mg DAILY CORBIN Administration - Exam Neck: negative: supple, symmetric, no JVD, no thyromegaly, no lymphadenopathy, no carotid bruit, JVD Heart: negative: RRR, no murmur, no gallops, no rubs, normal peripheral pulses, irregular, diminshed peripheral pulses, murmur present, II/IV, III/IV Respiratory: negative: CTAB, no wheezes, no rales, no ronchi, normal chest expansion, no tachypnea, normal percussion, rales, rhonchi, tachypneic, wheezes Gastrointestinal: soft, non-distended, normal bowel sounds Extremities: negative: no cyanosis, no clubbing, no edema, 1+ LE edema, 2+ LE edema, clubbing Hosp A/P (1) Sepsis Code(s): A41.9 - SEPSIS, UNSPECIFIED ORGANISM Status: Acute (2) COVID-19 Code(s): U07.1 - COVID-19 Status: Acute (3) Breast cancer Status: Chronic (4) Colitis Code(s): K52.9 - NONINFECTIVE GASTROENTERITIS AND COLITIS, UNSPECIFIED Status: Acute - Plan cdiff antigen present toxin pending. pt put on dificid and flagyl. will continue iv fluids. pt on remdesivir. will order CTA. will put in DVT ppx.
--- NOTE | 2020-09-05 17:09 | CT ---
Exam: CT angiogram of the chest HISTORY: Elevated d-dimer and shortness of breath. COVID positive patient. COMPARISON: None TECHNIQUE: CT angiogram of the chest is performed in the axial plane. Three-dimensional reformatted i mages are submitted for interpretation FINDINGS: Mediastinum: Upper normal right paratracheal lymph nodes. HEART: Normal size. No significant pericardial fluid. Aorta: No aneurysm or dissection Upper solid abdominal viscera: No abnormality enhancement. Trachea and central bronchi: Patent Pleural spaces: Small to moderate right effusion. Lung parenchyma: Consolidation adjacent right effusion may represent atelectasis, pneumonia or aspira tion. Additional opacities with air bronchograms noted in the right upper lobe superior segment of the right lower lobe. There are peripheral groundglass opacities, predominantly in the left lung and right upper lobe. Pneumothorax: None Osseous structures: No lytic or blastic lesions Pulmonary arteries: Adequate contrast opacification pulmonary arterial system to the level of segment al arteries. No filling defect to suggest pulmonary embolism IMPRESSION: 1. No evidence of pulmonary artery embolism to the level of the segmental arteries 2. Small to moderate right effusion 3. Multifocal opacities, compatible with COVID pneumonia. Additional consolidation in the right upper lobe and right lower lobe may represent atelectasis, aspiration superimposed upon COVID pneumonia.
[2020-09-05] MEDS: Saccharomyces boulardii 250 MG CAP PO SCH (21:22)
[2020-09-05] MEDS: Fidaxomicin 200 MG TAB PO SCH (21:25)
[2020-09-06] MEDS: Sodium Chloride 0.9% 1,000 ML IV SCH ×2 (00:30→09:48)
[2020-09-06] MEDS: diphenhydrAMINE 25 MG CAP PO PRN ×2 (02:28→22:54)
[2020-09-06] MEDS: metroNIDAZOLE 500 MG in Premix Bag 1 BAG IVPB SCH ×3 (06:51→20:09)
[2020-09-06] MEDS: Enoxaparin Sodium 40 MG/0.4 ML SYRINGE SC SCH ×2 (08:23→20:08)
[2020-09-06] MEDS: Famotidine 20 MG TAB PO SCH ×2 (08:24→20:08)
[2020-09-06] MEDS: Saccharomyces boulardii 250 MG CAP PO SCH ×2 (08:24→20:09)
[2020-09-06] MEDS: Dexamethasone 4 mg/ml Vial SLOW IVP SCH (08:24)
[2020-09-06] MEDS: Zinc Sulfate 220 MG CAP PO SCH (08:24)
[2020-09-06] MEDS: Ascorbic Acid 500 mg Chewable Tablet PO SCH (08:24)
[2020-09-06] MEDS: Fidaxomicin 200 MG TAB PO SCH ×2 (09:47→20:08)
[2020-09-06] MEDS: REMDESIVIR (EUA) 100 MG in Sodium Chloride 0.9% 250 ML 230 ML IV SCH (09:48)
--- NOTE | 2020-09-06 11:28 | PRG ---
DATE OF SERVICE: SUBJECTIVE: Ms. Gudino was started on fidaxomicin yesterday. This morning, she says she is quite a bit better. She has only had two bowel movements so far. These have remained watery, but this has really slowed down since yesterday. There is no blood in the stool. She is not having any abdominal pain or really any nausea this morning. She has been tolerating the clear liquid diet, but it is not very palatable. OBJECTIVE: VITAL SIGNS: Temperature 97.7, pulse 70, blood pressure 119/73, 95% oxygen saturation on 3 L by nasal cannula. GENERAL: No acute distress, lying in bed comfortably. HEART: Regular rate and rhythm. LUNGS: Bibasilar crackles with no wheezing. No respiratory distress. ABDOMEN: Nondistended. Bowel sounds are present. Soft and nontender to palpation throughout. EXTREMITIES: No peripheral edema. LABORATORY STUDIES: No new labs this morning. Clostridium difficile antigen and toxin are both positive. Fecal lactoferrin is elevated. ASSESSMENT AND PLAN: Clostridium difficile colitis. Today is day 2 of fidaxomicin 200 mg twice daily. I would recommend completing a 10-day course of fidaxomicin. She has already had significant symptomatic improvement. Okay to advance to a full liquid diet for lunch, then advance diet further as tolerated this afternoon if she is continuing to do well. GI will continue to follow along. Job ID: [id number]
--- NOTE | 2020-09-06 13:52 | PDOC.HOSPP ---
- Subjective Encounter Date: 09/06/20 Encounter Time: 11:30 Subjective: pt up in bed no complains - Objective Vital Signs & Weight: Vital Signs (12 hours) Temp Pulse Resp BP Pulse Ox 09/06/20 11:55 98.1 F 98 18 115/57 L 92 L 09/06/20 08:35 97.7 F 70 19 119/73 95 09/06/20 03:00 97.5 F L 94 18 109/72 99 Weight Admit Weight 215 lb Weight 215 lb I&O: 09/05/20 09/06/20 09/07/20 06:59 06:59 06:59 Intake Total 1869 1919 Balance 1869 1919 Result Diagrams: 09/05/20 04:34 09/05/20 04:34 Hospitalist ROS - Review of Systems Cardiovascular: denies: chest pain, palpitations, orthopnea, paroxysmal noc. dyspnea, edema, light headedness, other Gastrointestinal: denies: nausea, vomiting, abdominal pain, diarrhea, constipation, melena, hematochezia, other Genitourinary: denies: dysuria, frequency, incontinence, hematuria, retention, other - Medication Medications: Active Medications Generic Name Dose Route Start Last Admin Trade Name Freq PRN Reason Stop Dose Admin Hydrocodone Bitart/Acetaminophen 1 tab 09/05/20 00:37 09/05/20 21:21 Hydrocodone/Acetaminophen 7.5/325 Mg Tablet PO 1 tab Q4H PRN Administration Moderate Pain (4-6) Ascorbic Acid 1,000 mg 09/05/20 09:00 09/06/20 08:24 Ascorbic Acid 500 Mg Chewable Tablet PO 1,000 mg DAILY CORBIN Administration Dexamethasone 6 mg 09/06/20 09:00 09/06/20 08:24 Dexamethasone 4 Mg/Ml Vial SLOW IVP 6 mg DAILY CORBIN Administration Diphenhydramine HCl 25 mg 09/06/20 00:46 09/06/20 02:28 Diphenhydramine 25 Mg Cap PO 25 mg Q6H PRN Administration Itching & Insomnia Enoxaparin Sodium 40 mg 09/05/20 09:00 09/06/20 08:23 Enoxaparin Sodium 40 Mg/0.4 Ml Syringe SC 40 mg 0900,2100 CORBIN Administration Famotidine 20 mg 09/04/20 21:00 09/06/20 08:24 Famotidine 20 Mg Tab PO 20 mg BID CORBIN Administration Fidaxomicin 200 mg 09/05/20 21:00 09/06/20 09:47 Fidaxomicin 200 Mg Tab PO 200 mg BID CORBIN Administration Sodium Chloride 1,000 mls @ 100 mls/hr 09/04/20 18:30 09/06/20 09:48 Normal Saline 0.9% IV Not Given .Q10H CORBIN Remdesivir 100 mg/ Sodium 250 mls @ 250 mls/hr 09/06/20 09:00 09/06/20 09:48 Chloride IV 09/09/20 09:59 250 mls 0900 CORBIN Administration Ondansetron HCl 4 mg 09/04/20 18:17 09/05/20 21:34 Ondansetron Odt 4 Mg Tab PO 4 mg Q6H PRN Administration Nausea/Vomiting Saccharomyces Boulardii 250 mg 09/05/20 21:00 09/06/20 08:24 Saccharomyces Boulardii 250 Mg Cap PO 250 mg BID CORBIN Administration Sodium Chloride 10 ml 09/04/20 18:09 09/05/20 21:22 Flush - Normal Saline 10 Ml Syringe IVF 10 ml Q12HR PRN Administration Saline Flush Zinc Sulfate 220 mg 09/05/20 09:00 09/06/20 08:24 Zinc Sulfate 220 Mg Cap PO 220 mg DAILY CORBIN Administration - Exam Heart: negative: RRR, no murmur, no gallops, no rubs, normal peripheral pulses, irregular, diminshed peripheral pulses, murmur present, II/IV, III/IV Respiratory: negative: CTAB, no wheezes, no rales, no ronchi, normal chest expansion, no tachypnea, normal percussion, rales, rhonchi, tachypneic, wheezes Gastrointestinal: negative: soft, non-tender, non-distended, normal bowel sounds, no palpable masses, no hepatomegaly, no splenomegaly, no bruit, no guarding, no rigidity, tender to palpation, distended, diminished bowl sounds, voluntary guarding Extremities: negative: no cyanosis, no clubbing, no edema, 1+ LE edema, 2+ LE edema, clubbing Hosp A/P (1) Sepsis Code(s): A41.9 - SEPSIS, UNSPECIFIED ORGANISM Status: Acute (2) COVID-19 Code(s): U07.1 - COVID-19 Status: Acute (3) Breast cancer Status: Chronic (4) Colitis Code(s): K52.9 - NONINFECTIVE GASTROENTERITIS AND COLITIS, UNSPECIFIED Status: Acute - Plan cdiff antigen present toxin pending. pt put on dificid and flagyl. will continue iv fluids. pt on remdesivir. will order CTA. will put in DVT ppx. 09/06 will continue current treatment. pt appears well and feels well. will advance diet. will continue steroids and remdesivir. CTA negative for covid.
[2020-09-07] MEDS: metroNIDAZOLE 500 MG in Premix Bag 1 BAG IVPB SCH ×4 (03:46→20:33)
[2020-09-07] MEDS: Enoxaparin Sodium 40 MG/0.4 ML SYRINGE SC SCH ×2 (07:50→20:30)
[2020-09-07] MEDS: Famotidine 20 MG TAB PO SCH ×2 (07:50→20:30)
[2020-09-07] MEDS: Ascorbic Acid 500 mg Chewable Tablet PO SCH (07:50)
[2020-09-07] MEDS: Zinc Sulfate 220 MG CAP PO SCH (07:50)
[2020-09-07] MEDS: Saccharomyces boulardii 250 MG CAP PO SCH ×2 (07:50→20:30)
[2020-09-07] MEDS: Dexamethasone 4 mg/ml Vial SLOW IVP SCH (07:51)
[2020-09-07] MEDS: REMDESIVIR (EUA) 100 MG in Sodium Chloride 0.9% 250 ML 230 ML IV SCH (08:11)
[2020-09-07] MEDS: Fidaxomicin 200 MG TAB PO SCH ×2 (11:03→20:30)
--- NOTE | 2020-09-07 13:27 | PRG ---
DATE OF SERVICE: 09/07/2020 SUBJECTIVE: Ms. Gudino says she feels about the same today. Diarrhea significantly improved from a couple of days ago. She has had 3 bowel movements so far today, which have been fairly loose. She has been tolerating her diet, but does not have much of an appetite. No abdominal pain or nausea. OBJECTIVE: VITAL SIGNS: Temperature 98.4, pulse 89, blood pressure 123/79, 95% oxygen saturation on 3 L by nasal cannula. GENERAL: No acute distress. HEART: Regular rate and rhythm. LUNGS: No respiratory distress. Bibasilar crackles. No wheezing. ABDOMEN: Bowel sounds are present. Soft, nontender to palpation. EXTREMITIES: No peripheral edema. LABORATORY STUDIES: CRP down to 8.18. ASSESSMENT AND PLAN: Clostridium difficile colitis. Today is day 3 of fidaxomicin 200 mg twice daily. Again, recommend completing a 10-day course of fidaxomicin. She has already had significant symptomatic improvement. GI is going to sign off at this time, but please call back anytime with questions or concerns. Job ID: [id number]
--- NOTE | 2020-09-07 16:11 | PDOC.HOSPP ---
- Subjective Encounter Date: 09/07/20 Encounter Time: 11:50 Subjective: Patient up in bed appears teary. Diarrhea is improving - Objective Vital Signs & Weight: Vital Signs (12 hours) Temp Pulse Resp BP Pulse Ox 09/07/20 15:48 98.5 F 88 16 119/74 98 09/07/20 11:19 98.4 F 89 16 123/79 95 09/07/20 08:00 97.9 F 58 L 17 114/73 95 Weight Admit Weight 215 lb Weight 215 lb I&O: 09/06/20 09/07/20 09/08/20 06:59 06:59 06:59 Intake Total 1920 2400 1000 Balance 1920 2400 1000 Result Diagrams: 09/05/20 04:34 09/05/20 04:34 Hospitalist ROS - Review of Systems Respiratory: denies: cough, dry, shortness of breath, hemoptysis, SOB with excertion, pleuritic pain, sputum, wheezing, other Cardiovascular: denies: chest pain, palpitations, orthopnea, paroxysmal noc. dyspnea, edema, light headedness, other Gastrointestinal: denies: nausea, vomiting, abdominal pain, diarrhea, constipation, melena, hematochezia, other - Medication Medications: Active Medications Generic Name Dose Route Start Last Admin Trade Name Freq PRN Reason Stop Dose Admin Hydrocodone Bitart/Acetaminophen 1 tab 09/05/20 00:37 09/05/20 21:21 Hydrocodone/Acetaminophen 7.5/325 Mg Tablet PO 1 tab Q4H PRN Administration Moderate Pain (4-6) Ascorbic Acid 1,000 mg 09/05/20 09:00 09/07/20 07:50 Ascorbic Acid 500 Mg Chewable Tablet PO 1,000 mg DAILY CORBIN Administration Dexamethasone 6 mg 09/06/20 09:00 09/07/20 07:51 Dexamethasone 4 Mg/Ml Vial SLOW IVP 6 mg DAILY CORBIN Administration Diphenhydramine HCl 25 mg 09/06/20 00:46 09/06/20 22:54 Diphenhydramine 25 Mg Cap PO 25 mg Q6H PRN Administration Itching & Insomnia Enoxaparin Sodium 40 mg 09/05/20 09:00 09/07/20 07:50 Enoxaparin Sodium 40 Mg/0.4 Ml Syringe SC 40 mg 899,2099 CORBIN Administration Famotidine 20 mg 09/04/20 21:00 09/07/20 07:50 Famotidine 20 Mg Tab PO 20 mg BID CORBIN Administration Fidaxomicin 200 mg 09/05/20 21:00 09/07/20 11:03 Fidaxomicin 200 Mg Tab PO 200 mg BID CORBIN Administration Remdesivir 100 mg/ Sodium 250 mls @ 250 mls/hr 09/06/20 09:00 09/07/20 08:11 Chloride IV 09/09/20 09:59 250 mls 0900 CORBIN Administration Metronidazole 500 mg/ Device 100 mls @ 100 mls/hr 09/06/20 15:00 09/07/20 07:51 IVPB 100 mls 0300,0900,1500,2100 CORBIN Administration Ondansetron HCl 4 mg 09/04/20 18:17 09/05/20 21:34 Ondansetron Odt 4 Mg Tab PO 4 mg Q6H PRN Administration Nausea/Vomiting Saccharomyces Boulardii 250 mg 09/05/20 21:00 09/07/20 07:50 Saccharomyces Boulardii 250 Mg Cap PO 250 mg BID CORBIN Administration Sodium Chloride 10 ml 09/04/20 18:09 09/05/20 21:22 Flush - Normal Saline 10 Ml Syringe IVF 10 ml Q12HR PRN Administration Saline Flush Zinc Sulfate 220 mg 09/05/20 09:00 09/07/20 07:50 Zinc Sulfate 220 Mg Cap PO 220 mg DAILY CORBIN Administration - Exam Neck: negative: supple, symmetric, no JVD, no thyromegaly, no lymphadenopathy, no carotid bruit, JVD Heart: negative: RRR, no murmur, no gallops, no rubs, normal peripheral pulses, irregular, diminshed peripheral pulses, murmur present, II/IV, III/IV Respiratory: negative: CTAB, no wheezes, no rales, no ronchi, normal chest expansion, no tachypnea, normal percussion, rales, rhonchi, tachypneic, wheezes Gastrointestinal: negative: soft, non-tender, non-distended, normal bowel sounds, no palpable masses, no hepatomegaly, no splenomegaly, no bruit, no guarding, no rigidity, tender to palpation, distended, diminished bowl sounds, voluntary guarding Hosp A/P (1) Sepsis Code(s): A41.9 - SEPSIS, UNSPECIFIED ORGANISM Status: Acute (2) COVID-19 Code(s): U07.1 - COVID-19 Status: Acute (3) Breast cancer Status: Chronic (4) Colitis Code(s): K52.9 - NONINFECTIVE GASTROENTERITIS AND COLITIS, UNSPECIFIED Status: Acute - Plan cdiff antigen present toxin pending. pt put on dificid and flagyl. will continue iv fluids. pt on remdesivir. will order CTA. will put in DVT ppx. 09/06 will continue current treatment. pt appears well and feels well. will advance diet. will continue steroids and remdesivir. CTA negative for covid. 09/07 we will continue the current treatment. Patient encouraged to eat. We will continue the steroids. Patient continues to be on remdesivir.
[2020-09-08] MEDS: metroNIDAZOLE 500 MG in Premix Bag 1 BAG IVPB SCH ×4 (01:52→21:53)
[2020-09-08 05:41] LABS: ALT (SGPT) 58 U/L (8-55); AST (SGOT) 89 U/L (5-34); Albumin 2.4 g/dL (3.5-5.0); Alkaline Phosphatase 61 U/L (40-110); Anion Gap 10 mmol/L (10-20); BUN (Urea Nitrogen) 11 mg/dL (7.0-18.7); Bilirubin, Total 0.4 mg/dL (0.2-1.2); Calc. Creatinine Clearance 196 mL/min (70-130); Calcium 7.4 mg/dL (7.8-10.44); Carbon Dioxide 30 mmol/L (22-29); Chloride 102 mmol/L (98-107); Globulin 2.7 g/dL (2.4-3.5); Glucose 81 mg/dL (70-105); Potassium 3.2 mmol/L (3.5-5.1); Protein, Total 5.1 g/dL (6.0-8.3); Sodium 139 mmol/L (136-145)
[2020-09-08 06:40] LABS: Band 4 % (5-11); Eosinophils 1 % (0-10); Hemoglobin 9.8 g/dL (12.0-16.0); Hypochromia SLIGHT = 6-15 cells (100X) (0-5/hpf); Lymphocytes 21 % (21-51); MDiff Complete? YES; Mean Corpuscular HGB CONC 33.3 g/dL (32.0-36.0); Mean Corpuscular Volume 84.1 fL (78.0-98.0); Mean Platelet Volume 7.8 fL (7.4-10.4); Monocytes 11 % (0-10); Neutrophil 63 % (42-75); Platelet Count 308 thou/uL (130-400); Platelet Morphology Comment Appears Adequate; RBC Distribution Width 14.1 % (11.5-14.5); Red Blood Cell (RBC) Count 3.49 mill/uL (4.20-5.40); White Blood Cell (WBC) Count 11.3 thou/uL (4.8-10.8)
[2020-09-08] MEDS: Dexamethasone 4 mg/ml Vial SLOW IVP SCH (08:00)
[2020-09-08] MEDS: Famotidine 20 MG TAB PO SCH ×2 (08:05→21:53)
[2020-09-08] MEDS: Zinc Sulfate 220 MG CAP PO SCH (08:05)
[2020-09-08] MEDS: Saccharomyces boulardii 250 MG CAP PO SCH ×2 (08:05→21:53)
[2020-09-08] MEDS: Enoxaparin Sodium 40 MG/0.4 ML SYRINGE SC SCH ×2 (08:05→21:53)
[2020-09-08] MEDS: Fidaxomicin 200 MG TAB PO SCH ×2 (08:05→21:53)
[2020-09-08] MEDS: Ascorbic Acid 500 mg Chewable Tablet PO SCH (08:05)
[2020-09-08] MEDS: REMDESIVIR (EUA) 100 MG in Sodium Chloride 0.9% 250 ML 230 ML IV SCH (09:59)
[2020-09-08] MEDS: Acetaminophen 325 MG TAB PO PRN (10:00)
[2020-09-08] MEDS: Ondansetron ODT 4 MG TAB PO PRN (10:00)
[2020-09-08] MEDS ORDERED: Potassium Bicarbonate/Cit Ac 20 MEQ TAB PO SCH (13:15)
--- NOTE | 2020-09-08 13:26 | PDOC.HOSPP ---
- Subjective Encounter Date: 09/08/20 Encounter Time: 10:30 Subjective: Pt up in bed wants to go home. - Objective Vital Signs & Weight: Vital Signs (12 hours) Temp Pulse Resp BP Pulse Ox 09/08/20 11:20 99.4 F 82 20 113/61 96 09/08/20 08:05 99.1 F 80 23 H 122/62 97 09/08/20 04:00 98.5 F 75 16 113/66 97 Weight Admit Weight 215 lb Weight 215 lb I&O: 09/07/20 09/08/20 09/09/20 06:59 06:59 06:59 Intake Total 2400 2340 480 Balance 2400 2340 480 Result Diagrams: 09/08/20 05:09 09/08/20 05:09 Additional Labs: Accuchecks 09/07/20 21:30 POC Glucose 84 Hospitalist ROS - Review of Systems Cardiovascular: denies: chest pain, palpitations, orthopnea, paroxysmal noc. dyspnea, edema, light headedness, other Gastrointestinal: denies: nausea, vomiting, abdominal pain, diarrhea, constipation, melena, hematochezia, other Genitourinary: denies: dysuria, frequency, incontinence, hematuria, retention, other - Medication Medications: Active Medications Generic Name Dose Route Start Last Admin Trade Name Freq PRN Reason Stop Dose Admin Acetaminophen 650 mg 09/04/20 18:09 09/08/20 10:00 Acetaminophen 325 Mg Tab PO 650 mg Q4H PRN Administration Headache/Fever/Mild Pain (1-3) Hydrocodone Bitart/Acetaminophen 1 tab 09/05/20 00:37 09/05/20 21:21 Hydrocodone/Acetaminophen 7.5/325 Mg Tablet PO 1 tab Q4H PRN Administration Moderate Pain (4-6) Ascorbic Acid 1,000 mg 09/05/20 09:00 09/08/20 08:05 Ascorbic Acid 500 Mg Chewable Tablet PO 1,000 mg DAILY CORBIN Administration Dexamethasone 6 mg 09/06/20 09:00 09/08/20 08:00 Dexamethasone 4 Mg/Ml Vial SLOW IVP 6 mg DAILY CORBIN Administration Diphenhydramine HCl 25 mg 09/06/20 00:46 09/06/20 22:54 Diphenhydramine 25 Mg Cap PO 25 mg Q6H PRN Administration Itching & Insomnia Enoxaparin Sodium 40 mg 09/05/20 09:00 09/08/20 08:05 Enoxaparin Sodium 40 Mg/0.4 Ml Syringe SC 40 mg 0900,2100 CORBIN Administration Famotidine 20 mg 09/04/20 21:00 09/08/20 08:05 Famotidine 20 Mg Tab PO 20 mg BID CORBIN Administration Fidaxomicin 200 mg 09/05/20 21:00 09/08/20 08:05 Fidaxomicin 200 Mg Tab PO 200 mg BID CORBIN Administration Remdesivir 100 mg/ Sodium 250 mls @ 250 mls/hr 09/06/20 09:00 09/08/20 09:59 Chloride IV 09/09/20 09:59 250 mls 0900 CORBIN Administration Metronidazole 500 mg/ Device 100 mls @ 100 mls/hr 09/06/20 15:00 09/08/20 08:06 IVPB 100 mls 0300,0900,1500,2100 CORBIN Administration Ondansetron HCl 4 mg 09/04/20 18:17 09/08/20 10:00 Ondansetron Odt 4 Mg Tab PO 4 mg Q6H PRN Administration Nausea/Vomiting Saccharomyces Boulardii 250 mg 09/05/20 21:00 09/08/20 08:05 Saccharomyces Boulardii 250 Mg Cap PO 250 mg BID CORBIN Administration Sodium Chloride 10 ml 09/04/20 18:09 09/08/20 08:07 Flush - Normal Saline 10 Ml Syringe IVF 10 ml Q12HR PRN Administration Saline Flush Zinc Sulfate 220 mg 09/05/20 09:00 09/08/20 08:05 Zinc Sulfate 220 Mg Cap PO 220 mg DAILY CORBNI Administration - Exam Neck: negative: supple, symmetric, no JVD, no thyromegaly, no lymphadenopathy, no carotid bruit, JVD Heart: negative: RRR, no murmur, no gallops, no rubs, normal peripheral pulses, irregular, diminshed peripheral pulses, murmur present, II/IV, III/IV Respiratory: negative: CTAB, no wheezes, no rales, no ronchi, normal chest expansion, no tachypnea, normal percussion, rales, rhonchi, tachypneic, wheezes Gastrointestinal: negative: soft, non-tender, non-distended, normal bowel sounds, no palpable masses, no hepatomegaly, no splenomegaly, no bruit, no guarding, no rigidity, tender to palpation, distended, diminished bowl sounds, voluntary guarding Hosp A/P (1) Sepsis Code(s): A41.9 - SEPSIS, UNSPECIFIED ORGANISM Status: Acute (2) COVID-19 Code(s): U07.1 - COVID-19 Status: Acute (3) Breast cancer Status: Chronic (4) Colitis Code(s): K52.9 - NONINFECTIVE GASTROENTERITIS AND COLITIS, UNSPECIFIED Status: Acute (5) C. difficile colitis Code(s): A04.72 - ENTEROCOLITIS D/T CLOSTRIDIUM DIFFICILE, NOT SPCF RECUR Status: Acute - Plan cdiff antigen present toxin pending. pt put on dificid and flagyl. will continue iv fluids. pt on remdesivir. will order CTA. will put in DVT ppx. 09/06 will continue current treatment. pt appears well and feels well. will advance diet. will continue steroids and remdesivir. CTA negative for covid. 09/07 we will continue the current treatment. Patient encouraged to eat. We will continue the steroids. Patient continues to be on remdesivir. 09/08 pt's diarrhea has improved. She wants to go home possible all after her last dose of remdesivir.
[2020-09-09] MEDS: metroNIDAZOLE 500 MG in Premix Bag 1 BAG IVPB SCH ×3 (02:48→15:29)
[2020-09-09] MEDS: Saccharomyces boulardii 250 MG CAP PO SCH (08:31)
[2020-09-09] MEDS: Zinc Sulfate 220 MG CAP PO SCH (08:31)
[2020-09-09] MEDS: Famotidine 20 MG TAB PO SCH (08:31)
[2020-09-09] MEDS: Dexamethasone 4 mg/ml Vial SLOW IVP SCH (08:31)
[2020-09-09] MEDS: Enoxaparin Sodium 40 MG/0.4 ML SYRINGE SC SCH (08:31)
[2020-09-09] MEDS: Fidaxomicin 200 MG TAB PO SCH (08:32)
[2020-09-09] MEDS: Ascorbic Acid 500 mg Chewable Tablet PO SCH (08:37)
[2020-09-09] MEDS: Acetaminophen 325 MG TAB PO PRN (09:02)
[2020-09-09] MEDS: Ondansetron ODT 4 MG TAB PO PRN (09:03)
[2020-09-09 09:10] VITALS: TEMP 98.3
[2020-09-09] MEDS: REMDESIVIR (EUA) 100 MG in Sodium Chloride 0.9% 250 ML 230 ML IV SCH (10:18)
[2020-09-09 11:47] VITALS: BP 117/76
[2020-09-09] MEDS ORDERED: Sodium Chloride 0.9% 500 ML IV SCH (13:45)
--- NOTE | 2020-09-09 15:20 | PDOC.DS.DS ---
Provider - Provider Date of Admission: 09/04/20 17:00 Date of Discharge: 09/09/20 Admitting Provider: Jorge L Meléndez MD Consultations: Gastroentrology Primary Care Physician: [place] PCP PROVIDER Course - Hospital Course Hospital Course: Patient is a very pleasant 24-year-old female who initially presented to the hospital with abdominal pain nausea vomiting and cough. She was noted to be Covid positive. CTA negative for any PEs. She was also noted to C. difficile colitis. Patient was treated with rifaximin. GI was consulted. She was also initially on Flagyl. Patient was started on steroids. Patient was walked by nursing staff recommended no use of oxygen at home. Patient will be discharged home she is a little tachycardic when ambulated. However patient clinically states that she feels well. Resuscitation Status: 09/04/20 18:09 Resuscitation Status Routine Co-Sign Provider: Resuscitation Status: FULL: Full Resuscitation - Labs Lab Results: 09/08/20 05:09 09/08/20 05:09 Abnormal Lab Results - Last 48 hrs 09/08/20 05:09: Potassium 3.2 L, Carbon Dioxide 30 H, Calcium 7.4 L, AST 89 H, ALT 58 H, Serum Total Protein 5.1 L, Albumin 2.4 L, Albumin/Globulin Ratio 0.9 L 09/08/20 05:09: WBC 11.3 H, RBC 3.49 L, Hgb 9.8 L, Hct 29.4 L, Band Neuts % (Manual) 4 L, Monocytes % (Manual) 11 H Microbiology - Entire Visit 09/04/20 23:12 Stool - Liquid Stool Culture - Final 09/04/20 23:12 Stool - Liquid Escherichia coli 0157 Culture - Final 09/04/20 14:09 Venous blood - Left Hand Blood Culture - Preliminary NO GROWTH AT 48 HOURS 09/04/20 14:09 Venous blood - Left Arm Blood Culture - Preliminary NO GROWTH AT 48 HOURS 09/04/20 23:12 Stool C. difficile GDH Antigen & Toxins - Final 09/04/20 23:12 Stool Clostridioides difficile Toxins A&B (PCR) - Final 09/04/20 23:12 Stool - Liquid Stool Lactoferrin - Final 09/04/20 23:12 Stool - Liquid Campylobacter Antigen Assay - Final 09/04/20 23:12 Stool - Liquid Shiga Toxin Test - Final - Physical Exam Vitals: Vital Signs (12 hours) Temp Pulse Resp BP BP Pulse Ox 09/09/20 11:30 98.3 F 101 H 18 117/76 92 L 09/09/20 08:40 98.3 F 91 18 122/72 95 09/09/20 04:00 98.6 F 91 16 117/76 97 Weight Admit Weight 215 lb Weight 215 lb Physical Exam: The patient was seen and examined on the day of discharge. Problem - Problem (1) Sepsis Code(s): A41.9 - SEPSIS, UNSPECIFIED ORGANISM Status: Acute (2) COVID-19 Code(s): U07.1 - COVID-19 Status: Acute (3) Breast cancer Status: Chronic (4) Colitis Code(s): K52.9 - NONINFECTIVE GASTROENTERITIS AND COLITIS, UNSPECIFIED Status: Acute (5) C. difficile colitis Code(s): A04.72 - ENTEROCOLITIS D/T CLOSTRIDIUM DIFFICILE, NOT SPCF RECUR Status: Acute Plan - Discharge Medications Prescriptions: Aspirin 325 mg PO DAILY #10 tablet Dexamethasone [Decadron] 6 mg PO DAILY #5 tablet Fidaxomicin [Dificid] 200 mg PO BID #20 tab Saccharomyces Boulardii [Florastor] 250 mg PO DAILY #30 capsule Famotidine [Pepcid] 20 mg PO BID #10 tab Home Medications: Medication Instructions Recorded Confirmed Type Levofloxacin 500 mg PO DAILY 09/04/20 09/04/20 History Ondansetron [Zofran ODT] 4 mg PO Q8HR PRN 09/04/20 09/04/20 History Aspirin 325 mg PO DAILY #10 tablet 09/09/20 Rx Dexamethasone [Decadron] 6 mg PO DAILY #5 tablet 09/09/20 Rx Famotidine [Pepcid] 20 mg PO BID #10 tab 09/09/20 Rx Fidaxomicin [Dificid] 200 mg PO BID #20 tab 09/09/20 Rx Saccharomyces Boulardii [Florastor] 250 mg PO DAILY #30 capsule 09/09/20 Rx Allergies: haloperidol [From Haldol] Allergy (Verified 09/04/20 21:30) muscle spasms in face, lock jaw vancomycin Allergy (Verified 09/04/20 21:30) Severe Hives - Discharge Instructions Discharge Instructions:: follow up with primary care and take steroids with food. Activity:: Activity as Tolerated Nourishment:: Heart Healthy Diet - Follow up Plan Referrals: John Marti MD [Active] - PROVIDER,NO PCP [Primary Care Provider] - Disposition: HOME Quality - Care Measures CORE MEASURES:: N/A
== END 2020-09-09 17:54 | disposition home or self-care (01) | DRG 871 ==
LOC: ERS 13:40 → 2SE 17:00
PROVIDERS: ADMIT Internal Medicine; ATTEND Internal Medicine
PROC: 8E0ZXY6 Isolation (ICD-10-PCS; principal; 2020-09-04)
PROC: XW033E5 Introduction of Remdesivir Anti-infective into Peripheral Vein, Percutaneous Approach, New Technology Group 5 (ICD-10-PCS; 2020-09-05)
DX: A41.89 Other specified sepsis (principal); J12.82 Pneumonia due to coronavirus disease 2019; U07.1 COVID-19; K51.00 Ulcerative (chronic) pancolitis without complications; A04.72 Enterocolitis due to Clostridium difficile, not specified as recurrent; Z23 Encounter for immunization; E66.3 Overweight; R19.7 Diarrhea, unspecified; Z79.2 Long term (current) use of antibiotics; Z79.899 Other long term (current) drug therapy; Z90.49 Acquired absence of other specified parts of digestive tract; Z92.21 Personal history of antineoplastic chemotherapy; Z80.3 Family history of malignant neoplasm of breast; Z85.3 Personal history of malignant neoplasm of breast; Z88.1 Allergy status to other antibiotic agents; Z68.36 Body mass index [BMI] 36.0-36.9, adult; Z88.8 Allergy status to other drugs, medicaments and biological substances
CPT/HCPCS: 36415; 36416; 71045; 71275; 74177; 80053; 82550; 83605; 83630; 83690; 83735; 83880; 84443; 84484; 84703; 85025; 85379; 86140; 87040; 87045; 87046; 87324; 87427; 87449; 87493; 87635; 93005; 96365; 96367; 96375; 96376; J0692; J1100; J1642; J1650; J2270; J2405; J3490; J7050; Q0162; Q0163; Q9967; U0003

== ENCOUNTER 2020-12-31 15:15 | Outpatient (CLI) | payer BC | END 2020-12-31 15:16 | disposition home or self-care (01) | LOC: BICULT 15:15 | PROVIDERS: ATTEND Internal Medicine Hematology & Oncology | DX: C50.411 Malignant neoplasm of upper-outer quadrant of right female breast (principal) | CPT/HCPCS: 76999 ==

== ENCOUNTER 2021-01-08 09:51 | Outpatient (CLI) | payer BC ==
[2021-01-08 20:40] LABS: SARS-CoV-2 PCR by NAA Not Detected (NotDetected)
== END 2021-01-08 09:52 | disposition home or self-care (01) ==
LOC: LABBT 09:51
PROVIDERS: ATTEND Specialist
DX: Z01.812 Encounter for preprocedural laboratory examination (principal); C77.3 Secondary and unspecified malignant neoplasm of axilla and upper limb lymph nodes; C50.411 Malignant neoplasm of upper-outer quadrant of right female breast; Z20.822 Contact with and (suspected) exposure to COVID-19; Z80.3 Family history of malignant neoplasm of breast
CPT/HCPCS: 87635; U0003; U0005

== ENCOUNTER 2021-01-11 07:02 | Observation (INO) | payer BC ==
[2021-01-11 09:27] LABS: #Eosinphils 0.2 thou/uL (0.0-0.7); #Lymphocytes 1.2 thou/uL (1.20-3.40); #Monocytes 0.4 thou/uL (0.11-0.59); #Neutrophils 3.2 thou/uL (1.40-6.50); %Basophils 0.8 % (0.0-1.0); %Lymphocytes 24.8 % (21.0-51.0); %Monocytes 7.1 % (0.0-10.0); %Neutrophils 63.4 % (42.0-75.0); Hemoglobin 11.2 g/dL (12.0-16.0); Mean Corpuscular HGB CONC 32.6 g/dL (32.0-36.0); Mean Corpuscular Hemoglobin 30.7 pg (27.0-31.0); Mean Corpuscular Volume 94.2 fL (78.0-98.0); Mean Platelet Volume 7.5 fL (7.4-10.4); Platelet Count 299 thou/uL (130-400); RBC Distribution Width 14.7 % (11.5-14.5); Red Blood Cell (RBC) Count 3.66 mill/uL (4.20-5.40)
[2021-01-11] MEDS ORDERED: CEFAZOLIN 1 GM VIAL ONE ×2 (09:28→12:48)
[2021-01-11] MEDS ORDERED: Ketorolac Tromethamine 30 MG/ML VIAL ONE (09:29)
[2021-01-11] MEDS ORDERED: Sodium Chloride 0.9% 100 ML ONE ×2 (09:29→12:48)
[2021-01-11] MEDS ORDERED: Acetaminophen 500 MG TAB ONE (09:30)
[2021-01-11] MEDS ORDERED: Scopolamine 1.5 mg/72 hour Patch ONE (09:31)
[2021-01-11] MEDS ORDERED: Gabapentin 300 MG CAP ONE (09:32)
[2021-01-11 09:33] LABS: BHCG - Serum Negative (NEGATIVE); Pregs Control Background? CLEAR/WHITE (CLR/WHITE); Pregs Control Bar Appear? YES (CONTROL BAR)
[2021-01-11 09:50] LABS: ALT (SGPT) 40 U/L (8-55); AST (SGOT) 25 U/L (5-34); Albumin 3.8 g/dL (3.5-5.0); Alkaline Phosphatase 54 U/L (40-110); Anion Gap 13 mmol/L (10-20); BUN (Urea Nitrogen) 12 mg/dL (7.0-18.7); Bilirubin, Total 0.4 mg/dL (0.2-1.2); Calc. Creatinine Clearance 0 mL/min (70-130); Calcium 8.5 mg/dL (7.8-10.44); Carbon Dioxide 22 mmol/L (22-29); Chloride 105 mmol/L (98-107); Glucose 85 mg/dL (70-105); Potassium 3.8 mmol/L (3.5-5.1); Protein, Total 6.8 g/dL (6.0-8.3); Sodium 136 mmol/L (136-145)
[2021-01-11] MEDS ORDERED: Heparin 5,000 UNITS/ML VIAL ONE (12:48)
[2021-01-11] MEDS ORDERED: SUGAMMADEX SODIUM 200 MG/2 ML VIAL ONE (12:49)
[2021-01-11] MEDS ORDERED: HYDROmorphone 0.5 MG/0.5 ML SYRINGE ONE ×2 (12:49→16:15)
[2021-01-11] MEDS ORDERED: Lidocaine 1% w/Epinephrine 1:100K 20 ML VIAL ONE (12:56)
[2021-01-11] MEDS ORDERED: Bupivacaine 0.25% HCL 30 ML VIAL ONE ×2 (12:56→13:05)
[2021-01-11] MEDS ORDERED: Isosulfan Blue 50 MG/5 ML VIAL ONE (12:56)
[2021-01-11] MEDS ORDERED: EPINEPHrine 1 MG/ML AMP ONE (13:00)
[2021-01-11] MEDS ORDERED: Dexamethasone 20 MG/5 ML VIAL ONE (13:24)
[2021-01-11] MEDS ORDERED: Ondansetron PF 4 MG/2 ML Vial ONE ×2 (13:24→18:43)
[2021-01-11] MEDS ORDERED: Lidocaine 1% PF 5 ML VIAL ONE (13:24)
[2021-01-11] MEDS ORDERED: PROPOFOL 200 MG/20 ML VIAL ONE (13:24)
[2021-01-11] MEDS ORDERED: HYDROmorphone 2 MG/ML VIAL SLOW IVP PRN (16:25)
[2021-01-11] MEDS ORDERED: Ondansetron HCl/PF 4 MG/2 ML Vial IVP PRN (16:25)
[2021-01-11] MEDS ORDERED: Promethazine HCl 25 MG/ML VIAL SLOW IVP PRN (16:25)
[2021-01-11] MEDS ORDERED: Promethazine HCl 25 MG/ML VIAL ONE (21:27)
[2021-01-11] MEDS ORDERED: Sodium Chloride 0.9% 10 ML ONE (21:41)
[2021-01-11] MEDS ORDERED: Morphine 4 MG/ML VIAL SLOW IVP PRN ×2 (21:47)
[2021-01-11] MEDS ORDERED: HYDROcodone/Acetaminophen 5/325 mg Tablet PO PRN ×2 (21:48→21:49)
[2021-01-11] MEDS ORDERED: Ondansetron PF 4 MG/2 ML Vial IVP PRN ×2 (21:50)
[2021-01-11 23:02] VITALS: BMI 35.2
[2021-01-11] MEDS: CEFAZOLIN 2 GM in Premix Bag 1 BAG IVPB SCH (23:17)
[2021-01-11] MEDS: D5 1/2 NS w/20 mEq KCL 1,000 ML IV SCH (23:18)
[2021-01-12] MEDS: CEFAZOLIN 2 GM in Premix Bag 1 BAG IVPB SCH (05:47)
[2021-01-12] MEDS: D5 1/2 NS w/20 mEq KCL 1,000 ML IV SCH (06:37)
[2021-01-12] MEDS ORDERED: Prevnar 13-Val Conj/PF 0.5 ML SYRINGE IM ONE (09:00)
[2021-01-12 11:42] VITALS: BP 104/65; TEMP 98.1
== END 2021-01-12 13:05 | disposition home or self-care (01) ==
LOC: SDC 07:02 → SURG B 21:37
PROVIDERS: ADMIT Specialist; ATTEND Specialist
PROC: 0HTV0ZZ Resection of Bilateral Breast, Open Approach (ICD-10-PCS; principal; 2021-01-11)
PROC: 0HQX0ZZ Repair Left Nipple, Open Approach (ICD-10-PCS; 2021-01-11)
PROC: 0HQW0ZZ Repair Right Nipple, Open Approach (ICD-10-PCS; 2021-01-11)
PROC: 0JX60ZZ Transfer Chest Subcutaneous Tissue and Fascia, Open Approach (ICD-10-PCS; 2021-01-11)
PROC: 07B50ZX Excision of Right Axillary Lymphatic, Open Approach, Diagnostic (ICD-10-PCS; 2021-01-11)
DX: C50.411 Malignant neoplasm of upper-outer quadrant of right female breast (principal); C77.3 Secondary and unspecified malignant neoplasm of axilla and upper limb lymph nodes; N60.21 Fibroadenosis of right breast; N60.22 Fibroadenosis of left breast; R11.2 Nausea with vomiting, unspecified; Z17.0 Estrogen receptor positive status [ER+]; Z86.16 Personal history of COVID-19; Z79.2 Long term (current) use of antibiotics; Z79.899 Other long term (current) drug therapy; Z88.1 Allergy status to other antibiotic agents; Z88.8 Allergy status to other drugs, medicaments and biological substances
CPT/HCPCS: 78195; 80053; 84703; 85025; 88307; 88309; 88342; 90471; 90670; 96374; 96376; A9541; G0009; G0378; J0171; J0690; J1100; J1170; J1642; J1644; J1885; J2405; J2550; J2704; J3480; J3490; Q9968; S0020

== ENCOUNTER 2021-03-21 12:24 | Outpatient (CLI) | payer BC | END 2021-03-21 12:25 | disposition home or self-care (01) | LOC: ULT 12:24 | PROVIDERS: ATTEND Internal Medicine Hematology & Oncology | DX: Z51.11 Encounter for antineoplastic chemotherapy (principal); C50.411 Malignant neoplasm of upper-outer quadrant of right female breast; Z14.8 Genetic carrier of other disease; I08.1 Rheumatic disorders of both mitral and tricuspid valves | CPT/HCPCS: 93306 ==

== ENCOUNTER 2021-04-15 06:09 | Day surgery (SDC) | payer BC ==
[2021-04-11 12:54] VITALS: BMI 36.0
[2021-04-15] MEDS ORDERED: Midazolam HCl 2 mg/2 ml Vial ONE (06:20)
[2021-04-15] MEDS ORDERED: Fentanyl 250 MCG/5 ML VIAL ONE (06:20)
[2021-04-15] MEDS ORDERED: Lidocaine 2% Jelly 5 ML TUBE ONE (06:20)
[2021-04-15] MEDS ORDERED: Heparin 5,000 UNITS/ML VIAL ONE (06:23)
[2021-04-15] MEDS ORDERED: Neomycin-Polymyxin 1 ML AMP ONE ×2 (06:40→07:45)
[2021-04-15] MEDS ORDERED: EPINEPHrine 1 MG/ML AMP ONE ×2 (06:40→06:41)
[2021-04-15] MEDS ORDERED: Gentamicin 80 MG/2 ML VIAL ONE (06:40)
[2021-04-15] MEDS ORDERED: Bupivacaine 0.25% HCL 30 ML VIAL ONE (06:40)
[2021-04-15 06:55] LABS: BHCG - Serum Negative (NEGATIVE); Pregs Control Background? CLEAR/WHITE (CLR/WHITE); Pregs Control Bar Appear? YES (CONTROL BAR)
[2021-04-15] MEDS ORDERED: Propofol 1,000 MG/100 ML VIAL IV ONE ×2 (06:56→07:19)
[2021-04-15] MEDS ORDERED: Ondansetron PF 4 MG/2 ML Vial ONE (07:27)
[2021-04-15] MEDS ORDERED: Dexamethasone 20 MG/5 ML VIAL ONE (07:27)
[2021-04-15] MEDS ORDERED: PHENYLEPHRINE-NS 100 MCG/ML 10 ML SYRINGE ONE (07:27)
[2021-04-15] MEDS ORDERED: PROPOFOL 200 MG/20 ML VIAL ONE (07:27)
[2021-04-15] MEDS ORDERED: Lidocaine 1% PF 5 ML VIAL ONE (07:27)
[2021-04-15] MEDS ORDERED: CEFAZOLIN 1 GM VIAL ONE (07:45)
[2021-04-15] MEDS ORDERED: Fentanyl 100 MCG/2 ML VIAL ONE (10:12)
== END 2021-04-15 11:45 | disposition home or self-care (01) ==
LOC: SDC 06:09
PROVIDERS: ATTEND Plastic Surgery
PROC: 0HRV0JZ Replacement of Bilateral Breast with Synthetic Substitute, Open Approach (ICD-10-PCS; principal; 2021-04-15)
DX: N60.11 Diffuse cystic mastopathy of right breast (principal); N60.21 Fibroadenosis of right breast; N64.81 Ptosis of breast; E66.01 Morbid (severe) obesity due to excess calories; Z68.36 Body mass index [BMI] 36.0-36.9, adult; Z85.3 Personal history of malignant neoplasm of breast; Z79.899 Other long term (current) drug therapy; Z88.1 Allergy status to other antibiotic agents; Z88.8 Allergy status to other drugs, medicaments and biological substances
CPT/HCPCS: 36415; 84703; 88307; 88342; J0171; J0690; J1100; J1580; J1644; J2250; J2405; J2704; J3010; J3370; S0020

== ENCOUNTER 2021-06-25 12:17 | Outpatient (CLI) | payer BC | END 2021-06-25 12:18 | disposition home or self-care (01) | LOC: ULT 12:17 | PROVIDERS: ATTEND Internal Medicine Hematology & Oncology | DX: Z51.11 Encounter for antineoplastic chemotherapy (principal); C50.411 Malignant neoplasm of upper-outer quadrant of right female breast; Z79.899 Other long term (current) drug therapy | CPT/HCPCS: 93306 ==

== ENCOUNTER 2021-09-26 12:24 | Outpatient (CLI) | payer BC | END 2021-09-26 12:25 | disposition home or self-care (01) | LOC: ULT 12:24 | PROVIDERS: ATTEND Internal Medicine Hematology & Oncology | DX: Z51.11 Encounter for antineoplastic chemotherapy (principal); C50.411 Malignant neoplasm of upper-outer quadrant of right female breast; Z79.899 Other long term (current) drug therapy | CPT/HCPCS: 93306 ==

== ENCOUNTER 2022-04-13 19:00 | Outpatient (CLI) | payer BC | END 2022-04-13 19:01 | disposition home or self-care (01) | LOC: SLEEPLAB 19:00 | PROVIDERS: ATTEND Student in an Organized Health Care Education/Training Program | DX: G47.9 Sleep disorder, unspecified (principal); G47.33 Obstructive sleep apnea (adult) (pediatric); R53.83 Other fatigue; R51.9 Headache, unspecified; R06.83 Snoring; G47.00 Insomnia, unspecified; G47.10 Hypersomnia, unspecified; C50.919 Malignant neoplasm of unspecified site of unspecified female breast; I10 Essential (primary) hypertension; E66.9 Obesity, unspecified; Z68.41 Body mass index [BMI] 40.0-44.9, adult | CPT/HCPCS: 95811 ==

== ENCOUNTER 2022-09-16 09:35 | Outpatient (CLI) | payer BC | END 2022-09-16 09:36 | disposition home or self-care (01) | LOC: SCSRAD 09:35 | PROVIDERS: ATTEND Student in an Organized Health Care Education/Training Program | DX: M23.8X2 Other internal derangements of left knee (principal); M23.8X1 Other internal derangements of right knee | CPT/HCPCS: 36415; 80053; 80061; 82306 ==